=== PATIENT | female | born 1990 | race American Indian/Alaskan Native ===

== ENCOUNTER 2017-04-18 14:25 | Emergency (ER) | payer SELFPAY ==
[2017-04-18] MEDS ORDERED: BENADRYL ONE (15:24)
[2017-04-18] MEDS ORDERED: PEPCID IV ONE ×2 (15:24→15:26)
[2017-04-18] MEDS ORDERED: DECADRON ONE (15:24)
[2017-04-18] MEDS ORDERED: DECADRON IV ONE (15:26)
[2017-04-18] MEDS ORDERED: BENADRYL IV ONE (15:26)
--- NOTE | 2017-04-18 18:48 | Emergency Department Report ---
ED Allergic Reaction HPI - General Chief complaint: Allergic Reaction Stated complaint: HYPERTENSION/ALLERGIC REACTION Time Seen by Provider: 04/18/17 18:23 Source: patient Mode of arrival: Ambulatory Limitations: No Limitations - History of Present Illness MD Complaint: allergic reaction -: Gradual (this am at 0500) Exposure: food (sphaghetti) Symptoms: rash, itching, facial swelling (around the eyes), difficulty breathing , nausea, vomiting Severity: severe Treatment Prior to Arrival: none Previous Allergy History: none - Related Data Previous Rx's Medication Instructions Recorded Last Taken Type Methocarbamol [Robaxin] 750 mg PO BID #20 tab 09/15/14 Unknown Rx ALPRAZolam [Xanax TAB] 0.5 mg PO BID PRN #16 tab 02/11/15 Unknown Rx HYDROcodone/APAP 10-325 [[place] 1 each PO Q6HR PRN #16 tablet 03/30/15 Unknown Rx 10/325] Ibuprofen [Motrin 800 MG tab] 800 mg PO TID PRN #30 tablet 12/12/15 Unknown Rx Nitrofurantoin [place]/M-Cryst 100 mg PO Q12HR #14 capsule 12/12/15 Unknown Rx [Macrobid CAP] Promethazine [Phenergan TAB] 25 mg PO Q6HR PRN #20 tab 12/12/15 Unknown Rx traMADol [Ultram 50 MG tab] 50 mg PO Q6HR PRN #20 tablet 12/12/15 Unknown Rx Sulfamethoxazole/Trimethoprim 1 each PO BID #6 tablet 02/17/16 Unknown Rx [Bactrim DS TAB] Dexamethasone [Decadron] 20 mg PO ONCE #1 tablet 04/18/17 Unknown Rx Hydrochlorothiazide [HCTZ] 25 mg PO QDAY #30 tablet 04/18/17 Unknown Rx Ondansetron [Zofran TAB] 8 mg PO Q8HR PRN #9 tablet 04/18/17 Unknown Rx Allergies Allergy/AdvReac Type Severity Reaction Status Date / Time iodine Allergy Unknown Verified 04/18/17 15:10 ED Review of Systems ROS: Stated complaint: HYPERTENSION/ALLERGIC REACTION Other details as noted in HPI Constitutional: denies: chills, fever Eyes: denies: eye pain, eye discharge, vision change ENT: throat pain. denies: ear pain Respiratory: shortness of breath. denies: cough, wheezing Cardiovascular: denies: chest pain, palpitations Endocrine: no symptoms reported Gastrointestinal: nausea, vomiting ( 3 episodes). denies: abdominal pain, diarrhea Genitourinary: denies: urgency, dysuria, discharge Musculoskeletal: denies: back pain, joint swelling, arthralgia Skin: denies: rash, lesions Neurological: denies: headache, weakness, paresthesias Psychiatric: denies: anxiety, depression Hematological/Lymphatic: denies: easy bleeding, easy bruising ED Past Medical Hx - Past Medical History Previous Medical History?: Yes Hx Hypertension: Yes Hx Psychiatric Treatment: Yes (ANXIETY) Additional medical history: Heart murmur, Morbid Obesity - Surgical History Past Surgical History?: Yes Additional Surgical History: Umbilical HERNIA REPAIR - Social History Smoking Status: Never Smoker Substance Use Type: None - Medications Home Medications: Home Medications Medication Instructions Recorded Confirmed Last Taken Type Methocarbamol [Robaxin] 750 mg PO BID #20 tab 09/15/14 Unknown Rx ALPRAZolam [Xanax TAB] 0.5 mg PO BID PRN #16 tab 02/11/15 Unknown Rx HYDROcodone/APAP 10-325 [[place] 1 each PO Q6HR PRN #16 tablet 03/30/15 Unknown Rx 10/325] Ibuprofen [Motrin 800 MG tab] 800 mg PO TID PRN #30 tablet 12/12/15 Unknown Rx Nitrofurantoin [place]/M-Cryst 100 mg PO Q12HR #14 capsule 12/12/15 Unknown Rx [Macrobid CAP] Promethazine [Phenergan TAB] 25 mg PO Q6HR PRN #20 tab 12/12/15 Unknown Rx traMADol [Ultram 50 MG tab] 50 mg PO Q6HR PRN #20 tablet 12/12/15 Unknown Rx Sulfamethoxazole/Trimethoprim 1 each PO BID #6 tablet 02/17/16 Unknown Rx [Bactrim DS TAB] Dexamethasone [Decadron] 20 mg PO ONCE #1 tablet 04/18/17 Unknown Rx Hydrochlorothiazide [HCTZ] 25 mg PO QDAY #30 tablet 04/18/17 Unknown Rx Ondansetron [Zofran TAB] 8 mg PO Q8HR PRN #9 tablet 04/18/17 Unknown Rx ED Physical Exam - General Limitations: No Limitations General appearance: alert, in no apparent distress - Head Head exam: Present: atraumatic, normocephalic - Eye Eye exam: Present: normal appearance, EOMI, periorbital swelling, other ( urticaria around the eyes) - ENT ENT exam: Present: mucous membranes moist - Expanded ENT Exam Expanded Mouth exam: Present: normal external inspection, tongue normal. Absent: drooling, trismus, muffled voice Teeth exam: Present: normal inspection Throat exam: Positive: tonsillar erythema, tonsillomegaly - Neck Neck exam: Present: normal inspection, full ROM - Respiratory Respiratory exam: Present: normal lung sounds bilaterally. Absent: respiratory distress - Cardiovascular Cardiovascular Exam: Present: regular rate, normal rhythm, normal heart sounds. Absent: systolic murmur, diastolic murmur, rubs, gallop - GI/Abdominal GI/Abdominal exam: Present: soft, normal bowel sounds. Absent: distended, tenderness, guarding, rebound - Rectal Rectal exam: Present: deferred - Extremities Exam Extremities exam: Present: normal inspection, full ROM - Back Exam Back exam: Present: normal inspection, full ROM, other (tatoo in lumbar spine skin) - Neurological Exam Neurological exam: Present: alert, oriented X3, CN II-XII intact - Psychiatric Psychiatric exam: Present: normal affect, normal mood - Skin Skin exam: Present: warm, dry, intact, normal color, rash (around eyes, erythema , swelling), other (RIGHT SNCEST TATOO) ED Course Vital Signs 04/18/17 04/18/17 04/18/17 15:07 15:20 15:21 Temperature 98.3 F Pulse Rate 82 79 Respiratory 20 20 18 Rate Blood Pressure 116/89 O2 Sat by Pulse 99 98 Oximetry 04/18/17 04/18/17 04/18/17 15:30 15:46 16:00 Temperature Pulse Rate 88 83 83 Respiratory 15 36 H 19 Rate Blood Pressure 179/117 179/117 179/117 O2 Sat by Pulse 97 98 98 Oximetry 04/18/17 04/18/17 04/18/17 16:16 16:30 16:46 Temperature Pulse Rate 73 78 81 Respiratory 36 H 17 39 H Rate Blood Pressure 176/107 176/107 176/107 O2 Sat by Pulse 96 97 98 Oximetry 04/18/17 04/18/17 04/18/17 17:00 17:16 17:30 Temperature Pulse Rate 80 76 87 Respiratory 39 H 39 H 40 H Rate Blood Pressure 176/107 251/139 O2 Sat by Pulse 99 99 96 Oximetry 04/18/17 04/18/17 04/18/17 17:45 18:00 18:16 Temperature Pulse Rate 82 87 87 Respiratory 35 H 39 H 34 H Rate Blood Pressure 156/90 165/97 165/97 O2 Sat by Pulse 97 100 96 Oximetry 04/18/17 04/18/17 04/18/17 18:30 18:46 19:00 Temperature Pulse Rate 87 86 86 Respiratory 25 H 40 H 19 Rate Blood Pressure 165/97 148/90 158/103 O2 Sat by Pulse 97 Oximetry 04/18/17 19:16 Temperature Pulse Rate 87 Respiratory 14 Rate Blood Pressure 148/90 O2 Sat by Pulse Oximetry - Reevaluation(s) Reevaluation #1: 04/18/17 18:54 SHE IS NAUSEATED, WILL GIVE ZOFRAN. Critical care attestation.: If time is entered above; I have spent that time in minutes in the direct care of this critically ill patient, excluding procedure time. ED Disposition Clinical Impression: Strep pharyngitis with scarlet fever, Scarlet fever Hypertension Qualifiers: Hypertension type: unspecified Qualified Code(s): I10 - Essential (primary) hypertension Nausea & vomiting Qualifiers: Vomiting type: unspecified Vomiting Intractability: non-intractable Qualified Code(s): R11.2 - Nausea with vomiting, unspecified Disposition: DC-01 TO HOME OR SELFCARE Is pt being admited?: No Does the pt Need Aspirin: No Condition: Stable Instructions: Hypertension (ED), Strep Throat (ED), Scarlet Fever (ED), Acute Nausea and Vomiting (ED) Additional Instructions: you have strep throat, you are contagious. please do not kiss or share utensil with others in your family Prescriptions: Dexamethasone [Decadron] 20 mg PO ONCE #1 tablet Hydrochlorothiazide [HCTZ] 25 mg PO QDAY #30 tablet Ondansetron [Zofran TAB] 8 mg PO Q8HR PRN #9 tablet PRN Reason: Nausea And Vomiting Referrals: PRIMARY CARE,MD [Primary Care Provider] - 3-5 Days Forms: Work/School Release Form(ED) Time of Disposition: 20:12
[2017-04-18] MEDS ORDERED: ZOFRAN IV ONE (18:54)
[2017-04-18 19:25] VITALS: BP 148/90
[2017-04-18] MEDS ORDERED: BICILLIN L-A IM ONE (20:04)
== END 2017-04-18 20:20 | disposition home or self-care (01) ==
LOC: ED 14:25
DX: I10 Essential (primary) hypertension (principal); J02.0 Streptococcal pharyngitis; A38.9 Scarlet fever, uncomplicated; Z88.8 Allergy status to other drugs, medicaments and biological substances
CPT/HCPCS: 87430; 96372; 96374; 96375; 99282; J0561; J1100; J1200; J2405

== ENCOUNTER 2017-04-29 11:38 | Emergency (ER) | payer OTHER ==
[2017-04-29 12:34] LABS: Basophils % (Auto) 0.7 % (0.0-1.8); Eosinophils % (Auto) 1.3 % (0.0-4.3); Hematocrit 39.4 % (30.3-42.9); Hemoglobin 12.4 gm/dl (10.1-14.3); Mean Corpuscular HGB Conc 32 % (30-34); Mean Corpuscular Volume 82 fl (79-97); Platelet Count 341 K/mm3 (140-440); Red Blood Count 4.82 M/mm3 (3.65-5.03); Red Cell Distribution Width 16.2 % (13.2-15.2); White Blood Count 9.5 K/mm3 (4.5-11.0)
[2017-04-29 13:03] LABS: Mean Corpuscular Hemoglobin 26 pg (28-32)
[2017-04-29 14:52] LABS: Bacteria,Urine 1+ /HPF (Negative); Mucus,Urine 1+ /HPF
[2017-04-29 14:54] LABS: Bilirubin,Urine Negative (Negative); Blood,Urine Large (Negative); Ketones,Urine Negative (Negative); Nitrite,Urine Negative (Negative); Urobilinogen,Urine < 2.0 mg/dL (<2.0)
[2017-04-29 14:55] LABS: Leukocyte Esterase,Urine Large (Negative); RBC,Urine > 182.0 /HPF (0.0-6.0)
[2017-04-29 16:20] VITALS: BP 117/64
[2017-04-29] MEDS ORDERED: MACROBID PO ONE (16:49)
--- NOTE | 2017-04-29 16:51 | Emergency Department Report ---
HPI - General Chief Complaint: Vaginal Bleeding Time Seen by Provider: 04/29/17 16:24 - HPI HPI: This is a 26 year-old female presents to the emergency department with a few days of some vaginal bleeding and some abdominal cramping that started last night. The patient says that she took a home test last week and it was positive and therefore with the symptoms she is concerned that she had worse having a miscarriage. She says that the bleeding was light up until last night when she said it became heavier and she had some clots. Today it has started to improve but she still has the vaginal bleeding. She has not taken anything for her symptoms prior to presentation. With this she would be with one live child. She does not have an CHIEF SAFETY OFFICER. She has a past medical history of hypertension, anxiety. No recent travel or sick contacts at home. ED Past Medical Hx - Past Medical History Hx Hypertension: Yes Hx Psychiatric Treatment: Yes (ANXIETY) Additional medical history: Heart murmur, Morbid Obesity - Surgical History Additional Surgical History: Umbilical HERNIA REPAIR - Social History Smoking Status: Never Smoker Substance Use Type: None - Medications Home Medications: Home Medications Medication Instructions Recorded Confirmed Last Taken Type Methocarbamol [Robaxin] 750 mg PO BID #20 tab 09/15/14 Unknown Rx ALPRAZolam [Xanax TAB] 0.5 mg PO BID PRN #16 tab 02/11/15 Unknown Rx HYDROcodone/APAP 10-325 [[place] 1 each PO Q6HR PRN #16 tablet 03/30/15 Unknown Rx 10/325] Ibuprofen [Motrin 800 MG tab] 800 mg PO TID PRN #30 tablet 12/12/15 Unknown Rx Nitrofurantoin [place]/M-Cryst 100 mg PO Q12HR #14 capsule 12/12/15 Unknown Rx [Macrobid CAP] Promethazine [Phenergan TAB] 25 mg PO Q6HR PRN #20 tab 12/12/15 Unknown Rx traMADol [Ultram 50 MG tab] 50 mg PO Q6HR PRN #20 tablet 12/12/15 Unknown Rx Sulfamethoxazole/Trimethoprim 1 each PO BID #6 tablet 02/17/16 Unknown Rx [Bactrim DS TAB] Dexamethasone [Decadron] 20 mg PO ONCE #1 tablet 04/18/17 Unknown Rx Hydrochlorothiazide [HCTZ] 25 mg PO QDAY #30 tablet 04/18/17 Unknown Rx Ondansetron [Zofran TAB] 8 mg PO Q8HR PRN #9 tablet 04/18/17 Unknown Rx Nitrofurantoin Monohyd/M-Cryst 100 mg PO BID #14 capsule 04/29/17 Unknown Rx [Macrobid 100 mg Capsule] ED Review of Systems ROS: Stated complaint: VAG BLEEDING Other details as noted in HPI Comment: All other systems reviewed and negative Constitutional: denies: chills, fever Eyes: denies: eye pain, eye discharge, vision change ENT: denies: ear pain, throat pain Respiratory: denies: cough, shortness of breath, wheezing Cardiovascular: denies: chest pain, palpitations Gastrointestinal: abdominal pain. denies: nausea, vomiting Genitourinary: other (vaginal bleeding). denies: urgency, dysuria, discharge Musculoskeletal: denies: back pain, joint swelling, arthralgia Skin: denies: rash, lesions Neurological: denies: headache, weakness, paresthesias Physical Exam - Physical Exam Vital Signs: Vital Signs 04/29/17 04/29/17 04/29/17 11:44 13:32 13:41 Temperature 98.7 F 97.9 F Pulse Rate 76 68 Respiratory 17 18 Rate Blood Pressure 178/97 Blood Pressure 127/65 [Right] O2 Sat by Pulse 99 99 99 Oximetry 04/29/17 04/29/17 04/29/17 13:46 14:23 14:30 Temperature Pulse Rate 73 75 69 Respiratory 20 18 26 H Rate Blood Pressure 127/65 127/65 138/67 Blood Pressure [Right] O2 Sat by Pulse 100 97 Oximetry 04/29/17 04/29/17 04/29/17 14:46 15:00 15:16 Temperature Pulse Rate 67 60 67 Respiratory 21 15 27 H Rate Blood Pressure 138/67 123/25 123/25 Blood Pressure [Right] O2 Sat by Pulse 98 98 99 Oximetry 04/29/17 04/29/17 04/29/17 15:30 15:46 16:00 Temperature Pulse Rate 76 65 72 Respiratory 25 H 15 13 Rate Blood Pressure 123/25 146/93 117/64 Blood Pressure [Right] O2 Sat by Pulse 100 98 Oximetry 04/29/17 04/29/17 16:16 16:21 Temperature 98.0 F Pulse Rate 83 Respiratory 21 Rate Blood Pressure 117/64 Blood Pressure [Right] O2 Sat by Pulse 99 Oximetry Physical Exam: GENERAL: The patient is well-developed well-nourished. HENT: Normocephalic. Atraumatic. Patient has moist mucous membranes. EYES: Extraocular motions are intact. Pupils equal reactive to light bilaterally. NECK: Supple. Trachea is midline. CHEST/LUNGS: Clear to auscultation. There is no respiratory distress noted. HEART/CARDIOVASCULAR: Regular. There is no tachycardia. There is no murmur. ABDOMEN: Abdomen is soft, nontender. Patient has normal bowel sounds. There is no abdominal distention. Obese habitus. SKIN: Skin is warm and dry. NEURO: The patient is awake, alert, and oriented. The patient is cooperative. The patient has no focal neurologic deficits. The patient has normal speech. MUSCULOSKELETAL: There is no tenderness or deformity. There is no limitation range of motion. There is no evidence of acute injury. ED Course Vital Signs 04/29/17 04/29/17 04/29/17 11:44 13:32 13:41 Temperature 98.7 F 97.9 F Pulse Rate 76 68 Respiratory 17 18 Rate Blood Pressure 178/97 Blood Pressure 127/65 [Right] O2 Sat by Pulse 99 99 99 Oximetry 04/29/17 04/29/17 04/29/17 13:46 14:23 14:30 Temperature Pulse Rate 73 75 69 Respiratory 20 18 26 H Rate Blood Pressure 127/65 127/65 138/67 Blood Pressure [Right] O2 Sat by Pulse 100 97 Oximetry 04/29/17 04/29/17 04/29/17 14:46 15:00 15:16 Temperature Pulse Rate 67 60 67 Respiratory 21 15 27 H Rate Blood Pressure 138/67 123/25 123/25 Blood Pressure [Right] O2 Sat by Pulse 98 98 99 Oximetry 04/29/17 04/29/17 04/29/17 15:30 15:46 16:00 Temperature Pulse Rate 76 65 72 Respiratory 25 H 15 13 Rate Blood Pressure 123/25 146/93 117/64 Blood Pressure [Right] O2 Sat by Pulse 100 98 Oximetry 04/29/17 04/29/17 16:16 16:21 Temperature 98.0 F Pulse Rate 83 Respiratory 21 Rate Blood Pressure 117/64 Blood Pressure [Right] O2 Sat by Pulse 99 Oximetry ED Medical Decision Making - Lab Data Result diagrams: 04/29/17 12:05 - Medical Decision Making The patient presented with complaint of some abdominal cramping and some vaginal bleeding. It was heavy last night but has since slowed up. She has a stable hemoglobin level. Her beta hCG was 0 and are negative and she does not appear to be . Given her positive home test it was either a false positive or she had a chemical or she has since had a miscarriage. However given that the hormone level is 0, it did not occur in the last few days. Since the patient has a level of 0 and the bleeding has slowed up, I did not feel that a transvaginal ultrasound was necessary at this time. The rest of her labs have been unremarkable except for a urinary tract infection. She was given a prescription for Macrobid and she was given multiple referrals for CHIEF SAFETY OFFICER services. She will return to the ER with any worsening of her symptoms or any acute distress. Vital signs stable - Differential Diagnosis , threatened miscarriage, spontaneous miscarriage, fibroids Critical Care Time: No Critical care attestation.: If time is entered above; I have spent that time in minutes in the direct care of this critically ill patient, excluding procedure time. ED Disposition Clinical Impression: Vaginal bleeding, Spontaneous miscarriage UTI (urinary tract infection) Qualifiers: Urinary tract infection type: acute cystitis Hematuria presence: with hematuria Qualified Code(s): N30.01 - Acute cystitis with hematuria Disposition: TO HOME OR SELFCARE Is pt being admited?: No Condition: Stable Instructions: Spontaneous Miscarriage (ED), Dysfunctional Uterine Bleeding (ED) Additional Instructions: Please follow up with an CHIEF SAFETY OFFICER group. Return to the emergency Department with any worsening of your vaginal bleeding, worsening of your symptoms, or any acute distress. Prescriptions: Nitrofurantoin Monohyd/M-Cryst [Macrobid 100 mg Capsule] 100 mg PO BID #14 capsule Referrals: PRIMARY CARE [Primary Care Provider] - 3-5 Days [facility] [Provider Group] - 3-5 Days [facility] [Provider Group] - 3-5 Days [facility] [Provider Group] - 3-5 Days Forms: Work/School Release Form(ED) Time of Disposition: 16:51
== END 2017-04-29 17:00 | disposition home or self-care (01) ==
LOC: ED 11:38
DX: O03.9 Complete or unspecified spontaneous abortion without complication (principal); O23.40 Unspecified infection of urinary tract in pregnancy, unspecified trimester; I10 Essential (primary) hypertension; Z3A.00 Weeks of gestation of pregnancy not specified
CPT/HCPCS: 36415; 81001; 84702; 85025; 86850; 86900; 86901; 99283

== ENCOUNTER 2017-06-22 17:42 | Emergency (ER) | payer SELFPAY ==
[2017-06-22 18:36] LABS: Alanine Aminotransferase 7 units/L (7-56); Albumin 3.7 g/dL (3.9-5); BUN/Creatinine Ratio 13; Blood Urea Nitrogen 8 mg/dL (7-17); Calcium 8.6 mg/dL (8.4-10.2); Hemolysis Index 4
[2017-06-22 18:38] LABS: Basophils % (Auto) 0.2 % (0.0-1.8); Eosinophils # (Auto) 0.1 K/mm3 (0.0-0.4); Eosinophils % (Auto) 0.5 % (0.0-4.3); Hematocrit 40.3 % (30.3-42.9); Lymphocytes # (Auto) 1.5 K/mm3 (1.2-5.4); Lymphocytes % (Auto) 11.8 % (13.4-35.0); Mean Corpuscular HGB Conc 32 % (30-34); Mean Corpuscular Hemoglobin 26 pg (28-32); Mean Corpuscular Volume 80 fl (79-97); Monocytes # (Auto) 0.5 K/mm3 (0.0-0.8); Monocytes % (Auto) 3.7 % (0.0-7.3); Platelet Count 366 K/mm3 (140-440); Red Blood Count 5.05 M/mm3 (3.65-5.03)
--- NOTE | 2017-06-22 20:47 | Emergency Department Report ---
ED Abdominal Pain HPI - General Chief Complaint: Nausea/Vomiting/Diarrhea Stated Complaint: EMESIS Time Seen by Provider: 06/22/17 20:45 Source: patient Mode of arrival: Ambulatory Limitations: No Limitations - History of Present Illness Initial Comments: Patient here reports that she had positive home test 2 since 2017. She is complaining nausea vomiting with early . She says she is nauseous today but vomited yesterday. Stated I think I have a stomach virus. She also reports flulike symptoms for a week. Denies any vaginal discharge or bleeding. Reports abdominal cramping left lower quadrant that's been on-and-off since today. Cramping is 8 out of 10 when present. She has been twice with one living child. Denies any coughing, chest pain or difficulty breathing. Denies any diarrhea. Denies any sore throat. No over- the-counter medication taken. Patient says she has not been to the [facility] she wanted to verify her first. Last menstrual period was 04/30/2017. Patient does have a history of high blood pressure and she says it's controlled on medication. Her blood pressure in triage is 149/99. She has a history of anxiety. She denies any swelling in her legs. MD Complaint: abdominal pain (and reported ) -: This morning Location: LLQ Radiation: none Severity: severe Severity scale (0 -10): 8 Quality: cramping Consistency: intermittent Improves With: nothing Worsens With: nothing Context: other (reports ) Associated Symptoms: nausea, vomiting, chills, other (nasal congestion and runny nose). denies: diarrhea, fever, constipation, hematochezia, melena, hematuria, anorexia, syncope Treatments Prior to Arrival: other (none) - Related Data LMP Date: 04/30/17 Previous Rx's Medication Instructions Recorded Last Taken Type Methocarbamol [Robaxin] 750 mg PO BID #20 tab 09/15/14 Unknown Rx ALPRAZolam [Xanax TAB] 0.5 mg PO BID PRN #16 tab 02/11/15 Unknown Rx HYDROcodone/APAP 10-325 [Brainard 1 each PO Q6HR PRN #16 tablet 03/30/15 Unknown Rx 10/325] Ibuprofen [Motrin 800 MG tab] 800 mg PO TID PRN #30 tablet 12/12/15 Unknown Rx Nitrofurantoin [place]/M-Cryst 100 mg PO Q12HR #14 capsule 12/12/15 Unknown Rx [Macrobid CAP] Promethazine [Phenergan TAB] 25 mg PO Q6HR PRN #20 tab 12/12/15 Unknown Rx traMADol [Ultram 50 MG tab] 50 mg PO Q6HR PRN #20 tablet 12/12/15 Unknown Rx Sulfamethoxazole/Trimethoprim 1 each PO BID #6 tablet 02/17/16 Unknown Rx [Bactrim DS TAB] Dexamethasone [Decadron] 20 mg PO ONCE #1 tablet 04/18/17 Unknown Rx Hydrochlorothiazide [HCTZ] 25 mg PO QDAY #30 tablet 04/18/17 Unknown Rx Ondansetron [Zofran TAB] 8 mg PO Q8HR PRN #9 tablet 04/18/17 Unknown Rx Nitrofurantoin Monohyd/M-Cryst 100 mg PO BID #14 capsule 04/29/17 Unknown Rx [Macrobid 100 mg Capsule] Nitrofurantoin Monohyd/M-Cryst 100 mg PO Q12H 7 Days #14 capsule 06/22/17 Unknown Rx [Macrobid 100 mg Capsule] Vit No.130/Iron/Folic 1 each PO QAM 30 Days #30 tablet 06/22/17 Unknown Rx [ Tablet] Allergies Allergy/AdvReac Type Severity Reaction Status Date / Time iodine Allergy Unknown Verified 04/18/17 15:10 ED Review of Systems ROS: Stated complaint: EMESIS Other details as noted in HPI Comment: All other systems reviewed and negative Constitutional: chills. denies: fever Eyes: denies: eye pain, eye discharge ENT: congestion. denies: ear pain, throat pain Respiratory: no symptoms reported Cardiovascular: denies: chest pain, palpitations, dyspnea on exertion, edema, syncope, paroxysmal nocturnal dyspnea Gastrointestinal: abdominal pain, nausea, vomiting. denies: diarrhea, constipation, hematemesis, melena, hematochezia Genitourinary: abnormal menses. denies: urgency, dysuria, frequency, hematuria , discharge Musculoskeletal: denies: back pain, joint swelling, arthralgia, myalgia Skin: denies: rash Neurological: denies: headache, weakness, numbness, paresthesias, confusion, abnormal gait, vertigo ED Past Medical Hx - Past Medical History Previous Medical History?: Yes Hx Hypertension: Yes Hx Psychiatric Treatment: Yes (ANXIETY) Additional medical history: Heart murmur, Morbid Obesity, vaginal delivery 2008 - Surgical History Past Surgical History?: Yes Additional Surgical History: Umbilical HERNIA REPAIR - Family History Family history: hypertension - Social History Smoking Status: Never Smoker Substance Use Type: Prescribed - Medications Home Medications: Home Medications Medication Instructions Recorded Confirmed Last Taken Type Methocarbamol [Robaxin] 750 mg PO BID #20 tab 09/15/14 Unknown Rx ALPRAZolam [Xanax TAB] 0.5 mg PO BID PRN #16 tab 02/11/15 Unknown Rx HYDROcodone/APAP 10-325 [Brainard 1 each PO Q6HR PRN #16 tablet 03/30/15 Unknown Rx 10/325] Ibuprofen [Motrin 800 MG tab] 800 mg PO TID PRN #30 tablet 12/12/15 Unknown Rx Nitrofurantoin [place]/M-Cryst 100 mg PO Q12HR #14 capsule 12/12/15 Unknown Rx [Macrobid CAP] Promethazine [Phenergan TAB] 25 mg PO Q6HR PRN #20 tab 12/12/15 Unknown Rx traMADol [Ultram 50 MG tab] 50 mg PO Q6HR PRN #20 tablet 12/12/15 Unknown Rx Sulfamethoxazole/Trimethoprim 1 each PO BID #6 tablet 02/17/16 Unknown Rx [Bactrim DS TAB] Dexamethasone [Decadron] 20 mg PO ONCE #1 tablet 04/18/17 Unknown Rx Hydrochlorothiazide [HCTZ] 25 mg PO QDAY #30 tablet 04/18/17 Unknown Rx Ondansetron [Zofran TAB] 8 mg PO Q8HR PRN #9 tablet 04/18/17 Unknown Rx Nitrofurantoin Monohyd/M-Cryst 100 mg PO BID #14 capsule 04/29/17 Unknown Rx [Macrobid 100 mg Capsule] Nitrofurantoin Monohyd/M-Cryst 100 mg PO Q12H 7 Days #14 capsule 06/22/17 Unknown Rx [Macrobid 100 mg Capsule] Vit No.130/Iron/Folic 1 each PO QAM 30 Days #30 tablet 06/22/17 Unknown Rx [ Tablet] ED Physical Exam - General Limitations: No Limitations General appearance: alert, in no apparent distress - Head Head exam: Present: atraumatic, normocephalic, normal inspection - Eye Eye exam: Present: normal appearance, PERRL, EOMI. Absent: nystagmus, periorbital swelling, periorbital tenderness Pupils: Present: normal accommodation - ENT ENT exam: Present: normal exam, normal orophraynx, mucous membranes moist, TM's normal bilaterally, normal external ear exam - Neck Neck exam: Present: normal inspection, full ROM, other. Absent: tenderness, meningismus, lymphadenopathy, thyromegaly - Respiratory Respiratory exam: Present: normal lung sounds bilaterally. Absent: respiratory distress, chest wall tenderness, accessory muscle use - Cardiovascular Cardiovascular Exam: Present: regular rate, normal rhythm, normal heart sounds. Absent: systolic murmur, diastolic murmur - GI/Abdominal GI/Abdominal exam: Present: soft, normal bowel sounds. Absent: distended, tenderness, guarding, rebound, rigid, organomegaly, mass, bruit, pulsatile mass , hernia - External exam: Present: normal external exam. Absent: erythema, swelling, lesions, lacerations, ecchymosis, other Speculum exam: Present: normal speculum exam. Absent: erythema, vaginal discharge, cervical discharge, vaginal bleeding, foreign body, tissue, laceration Bi-manual exam: Present: normal bi-manual exam. Absent: cervical motion tendernes, adnexal tenderness, adnexal mass, uterine enlargement, uterine tenderness - Expanded Exam Expanded Female exam: Absent: vaginal laceration, tissue present in vagina, herpetic lesions, vulvar erythema, vulvar tenderness, foreign body External exam: Present: normal Amniotic fluid: Present: none Speculum exam: Present: cervical OS closed - Extremities Exam Extremities exam: Present: normal inspection, full ROM, normal capillary refill , other (no clubbing, cyanosis or edema. Positive pulses all extremities and no neurovascular compromise). Absent: tenderness, pedal edema, joint swelling, calf tenderness - Back Exam Back exam: Present: normal inspection, full ROM, other (ablated without any difficulties). Absent: tenderness, CVA tenderness (R), CVA tenderness (L), muscle spasm, paraspinal tenderness, vertebral tenderness, rash noted - Neurological Exam Neurological exam: Present: alert, oriented X3, normal gait, reflexes normal. Absent: motor sensory deficit - Psychiatric Psychiatric exam: Present: normal affect, normal mood - Skin Skin exam: Present: warm, dry, intact, normal color. Absent: rash ED Course Vital Signs 06/22/17 06/22/17 17:45 22:18 Temperature 97.7 F Pulse Rate 85 Respiratory 20 Rate Blood Pressure 149/99 Blood Pressure 132/84 [Left] O2 Sat by Pulse 97 Oximetry Vital Signs 06/22/17 06/22/17 17:45 22:18 Temperature 97.7 F Pulse Rate 85 Respiratory 20 Rate Blood Pressure 149/99 Blood Pressure 132/84 [Left] O2 Sat by Pulse 97 Oximetry - Reevaluation(s) Reevaluation #1: 06/22/17 22:08 Pelvic exam done and cervix appears normal and closed without any bleeding in or discharge noted. No adnexal tenderness or CMT. Patient received Zofran 4 mg ODT and she was able to tolerate 4 cups of juice without any difficulties. Her vital signs better to include her blood pressure which was 144/96 when she arrived. She has a history of high blood pressure and is . Patient takes HCTZ but told her that she needs to monitor her blood pressure daily and call referrals made to [facility] doctor international trade analyst or [facility] to schedule an appointment for this week to discuss care and also shortness of blood pressure medication during . Reevaluation #2: 06/22/17 23:[address] Collado for to return call to let them know that patient ultrasound shows probably blighted ovum from and that patient will need to follow-up for ultrasound. ED Medical Decision Making - Lab Data Result diagrams: 06/22/17 17:57 06/22/17 17:57 Lab Results 06/22/17 06/22/17 06/22/17 Range/Units 17:57 17:57 17:57 WBC 12.6 H (4.5-11.0) K/mm3 RBC 5.05 H (3.65-5.03) M/mm3 Hgb 13.0 (10.1-14.3) gm/dl Hct 40.3 (30.3-42.9) % MCV 80 (79-97) fl MCH 26 L (28-32) pg MCHC 32 (30-34) % RDW 17.0 H (13.2-15.2) % Plt Count 366 (140-440) K/mm3 Lymph % (Auto) 11.8 L (13.4-35.0) % [place] % (Auto) 3.7 (0.0-7.3) % Eos % (Auto) 0.5 (0.0-4.3) % Baso % (Auto) 0.2 (0.0-1.8) % Lymph # 1.5 (1.2-5.4) K/mm3 [place] # 0.5 (0.0-0.8) K/mm3 Eos # 0.1 (0.0-0.4) K/mm3 Baso # 0.0 (0.0-0.1) K/mm3 Seg Neutrophils % 83.8 H (40.0-70.0) % Seg Neutrophils # 10.5 H (1.8-7.7) K/mm3 Sodium 138 (137-145) mmol/L Potassium 4.1 (3.6-5.0) mmol/L Chloride 98.7 (98-107) mmol/L Carbon Dioxide 27 (22-30) mmol/L Anion Gap 16 mmol/L BUN 8 (7-17) mg/dL Creatinine 0.6 L (0.7-1.2) mg/dL Estimated GFR > 60 ml/min BUN/Creatinine Ratio 13 % Glucose 99 (65-100) mg/dL Calcium 8.6 (8.4-10.2) mg/dL Total Bilirubin 0.30 (0.1-1.2) mg/dL AST 11 (5-40) units/L ALT 7 (7-56) units/L Alkaline Phosphatase 65 (35-129) units/L Total Protein 6.7 (6.3-8.2) g/dL Albumin 3.7 L (3.9-5) g/dL Albumin/Globulin Ratio 1.2 % HCG, Quant 9770 H (0-4) mIU/mL Urine Color (Yellow) Urine Turbidity (Clear) Urine pH (5.0-7.0) Ur Specific [place] (1.003-1.030) Urine Protein (Negative) mg/dL Urine Glucose (UA) (Negative) mg/dL Urine Ketones (Negative) mg/dL Urine Blood (Negative) Urine Nitrite (Negative) Urine Bilirubin (Negative) Urine Urobilinogen (<2.0) mg/dL Ur Leukocyte Esterase (Negative) Urine WBC (Auto) (0.0-6.0) /HPF Urine RBC (Auto) (0.0-6.0) /HPF U Epithel Cells (Auto) (0-13.0) /HPF Urine Mucus /HPF 06/22/17 Range/Units 20:35 WBC (4.5-11.0) K/mm3 RBC (3.65-5.03) M/mm3 Hgb (10.1-14.3) gm/dl Hct (30.3-42.9) % MCV (79-97) fl MCH (28-32) pg MCHC (30-34) % RDW (13.2-15.2) % Plt Count (140-440) K/mm3 Lymph % (Auto) (13.4-35.0) % [place] % (Auto) (0.0-7.3) % Eos % (Auto) (0.0-4.3) % Baso % (Auto) (0.0-1.8) % Lymph # (1.2-5.4) K/mm3 [place] # (0.0-0.8) K/mm3 Eos # (0.0-0.4) K/mm3 Baso # (0.0-0.1) K/mm3 Seg Neutrophils % (40.0-70.0) % Seg Neutrophils # (1.8-7.7) K/mm3 Sodium (137-145) mmol/L Potassium (3.6-5.0) mmol/L Chloride (98-107) mmol/L Carbon Dioxide (22-30) mmol/L Anion Gap mmol/L BUN (7-17) mg/dL Creatinine (0.7-1.2) mg/dL Estimated GFR ml/min BUN/Creatinine Ratio % Glucose (65-100) mg/dL Calcium (8.4-10.2) mg/dL Total Bilirubin (0.1-1.2) mg/dL AST (5-40) units/L ALT (7-56) units/L Alkaline Phosphatase (35-129) units/L Total Protein (6.3-8.2) g/dL Albumin (3.9-5) g/dL Albumin/Globulin Ratio % HCG, Quant (0-4) mIU/mL Urine Color Yellow (Yellow) Urine Turbidity Clear (Clear) Urine pH 5.0 (5.0-7.0) Ur Specific [place] 1.030 (1.003-1.030) Urine Protein <15 mg/dl (Negative) mg/dL Urine Glucose (UA) Neg (Negative) mg/dL Urine Ketones 20 (Negative) mg/dL Urine Blood Neg (Negative) Urine Nitrite Neg (Negative) Urine Bilirubin Neg (Negative) Urine Urobilinogen < 2.0 (<2.0) mg/dL Ur Leukocyte Esterase Lg (Negative) Urine WBC (Auto) 4.0 (0.0-6.0) /HPF Urine RBC (Auto) 2.0 (0.0-6.0) /HPF U Epithel Cells (Auto) 12.0 (0-13.0) /HPF Urine Mucus Few /HPF Urine culture pending - Radiology Data Radiology results: report reviewed Ultrasound transvaginal and transabdominal reveals single intrauterine with an approximate age of 6 weeks and 1 days. No evidence of pole or yolk sac is identified. This is abnormal for this estimated gestational age however short-term follow-up ultrasound in 1 week is recommended to exclude a blighted ovum. He has no evidence for solid adnexal masses seen there is no free fluids noted with air varies appear normal in size and echogenicity with normal blood flow bilaterally. Expected date of delivery is 02/14/2018 - Medical Decision Making ED course: Patient here reports that she was requesting present to test because she had 2 positive tests at home and she is having cramping in her abdomen without any vaginal discharge or bleeding in. She is also complaining of nausea and vomiting earlier today. Pelvic exam is normal. Ultrasound transvaginal and pelvic shows patient with IUP at 6 weeks 1 day. No evidence of pole or yolk sac is identified. Short-term follow-up ultrasound in 1 week is recommended to exclude blighted ovum due to absence of pole and yolk sac. Patient does not have [facility] and she does not have access due to lack of insurance. I already discussed with patient that I would give 2 referrals to on-call doctor who is and also this [facility] who has [facility] service. Patient has chronic hypertension and I told her that she needs to call the 2 referrals tomorrow to see which when she can get in first 2 managed hypertension in . Her blood pressure stable at present. I collaborated with Dr. Torrez regarding patient ultrasound results and she wants Dr. Collado to be called just to let them now that patient's has possible blighted ovum and will need to be seen for follow-up ultrasound and quantitative hCG in one week per radiologist.. I spoke with patient regarding in ultrasound results and told her that she'll need to return in 2 days to have blood hormone level taken and also she will need to have access to [facility] offices for repeat ultrasound and if she cannot get in [facility] in one week to return to the emergency room for follow-up ultrasound. I discussed with her if the ultrasound result and told her that also intrauterine was detected at 6 weeks and 1 day there were other components to the ultrasound that were not seen and this is suggested that probably this is a molar . I discussed with her what molar is and she voiced understanding. I also discussed with her that there are no heart rate detected. I discussed in detail with her what molar is. I also told the room waiting for the on-call [facility] to call me back. I discussed her diagnosis, treatment plan and that she needs to start on vitamin. I also discussed with her that she has a bladder infection and will need to start and Macrobid. Patient leukocyte Estrace is showing a large amount with all other values showing normal therefore urine culture sent out she does have slightly elevated white count with shifted to the left. Patient discharged home in stable condition with prescription for Macrobid and vitamin. She opts to leave and return in 2 days and she says she'll call both referrals tomorrow morning in to schedule an appointment for outpatient follow-up. She is also aware that she needs to return in 2 days for follow-up serum hCG level. Patient is stable she says she felt better and did not want to wait. Discharged from ED in stable condition. Critical care attestation.: If time is entered above; I have spent that time in minutes in the direct care of this critically ill patient, excluding procedure time. ED Disposition Clinical Impression: Abdominal pain during in first trimester, Nausea and vomiting in prior to 22 weeks gestation, Elevated serum hCG, Urinary tract infection during intrauterine Disposition: TO HOME OR SELFCARE Is pt being admited?: No Does the pt Need Aspirin: No Condition: Stable Instructions: Urinary Tract Infection in Women (ED), Acute Nausea and Vomiting (ED), Abdominal Pain in (ED) Additional Instructions: Please return to the emergency room and 2 days to get repeat hormone level. You will need to have a repeat ultrasound in 1 week by [facility] and if he cannot get in with [facility] at some outside Medical Center or with Dr. Collado please return to the emergency room If he developed vaginal bleeding and/or discharge with cramp in return to the emergency room RAJENDRA Please monitor the blood pressure daily and keep written log to take 2 year first [facility] visit Start taking vitamin Prescriptions: Nitrofurantoin Monohyd/M-Cryst [Macrobid 100 mg Capsule] 100 mg PO Q12H 7 Days # 14 capsule Vit No.130/Iron/Folic [ Tablet] 1 each PO QAM 30 Days #30 tablet Referrals: [facility] [Outside] - 06/23/17 [place] COLLADO MD [Staff Physician] - 06/23/17 return to, emergency room in 2 days [Other] - 06/24/17 (For repeat hormone tests) Forms: Work/School Release Form(ED)
[2017-06-22 21:07] LABS: Bilirubin,Urine NEG (Negative); Blood,Urine NEG (Negative); Color,Urine Yellow (Yellow); Mucus,Urine FEW /HPF; Nitrite,Urine NEG (Negative); Protein,Urine <15 mg/dL mg/dL (Negative); Urobilinogen,Urine < 2.0 mg/dL (<2.0)
[2017-06-22] MEDS ORDERED: ZOFRAN ODT PO ONE (21:39)
--- NOTE | 2017-06-22 22:15 | Ultrasound Report ---
FINAL REPORT EXAM: US OB < = 14 WEEKS FETUS HISTORY: , no abdominal pain, n/v . Serum beta HCG quantitation 9770. LMP 04/26/2017 with estimated age 8 weeks 1 day and EDC 01/31/2018 TECHNIQUE: Ultrasound of the pelvis using transabdominal and transvaginal imaging PRIORS: None. FINDINGS: Uterus: Uterus is enlarged in size and normal and homogeneous in echogenicity without focal fibroid formation. The uterus measures 11.1 x 6.2 x 6.5 cm in size. There is a single early intrauterine gestation noted in the fundus of the uterus. Intrauterine gestation: There is a single intrauterine gestation identified but there is no evidence for a pole and yolk sac. The average gestational sac diameter of 13 mm corresponds to estimated age 6 weeks 1 days with EDC 02/14/2018. Ovaries: Both ovaries appear normal in size and echogenicity with normal blood flow bilaterally. The right ovary measures 3.5 x 2.0 x 1.9 cm and the left ovary measures 2.8 x 1.5 x 2.1 cm in size. There is an anechoic simple cystic focus in the right ovary measuring 1.9 cm. Other: There is no evidence for solid adnexal mass is seen. There is no free fluid in the cul-de-sac. IMPRESSION: Single intrauterine with an approximate age of 6 weeks 1 days. No evidence for pole or yolk sac is identified. This is abnormal for this estimated gestational age, however, short-term follow-up ultrasound in 1 week is recommended to exclude a blighted ovum.
[2017-06-22 22:19] VITALS: BP 132/84
== END 2017-06-22 23:26 | disposition home or self-care (01) ==
LOC: ED 17:42
DX: O23.41 Unspecified infection of urinary tract in pregnancy, first trimester (principal); I10 Essential (primary) hypertension; Z3A.01 Less than 8 weeks gestation of pregnancy; Z88.8 Allergy status to other drugs, medicaments and biological substances
CPT/HCPCS: 36415; 76801; 76817; 80053; 81001; 84702; 85025; 87086; 99284; Q0162

== ENCOUNTER 2017-07-19 12:36 | Outpatient (CLI) | payer MEDICAID ==
--- NOTE | 2017-07-20 07:47 | Ultrasound Report ---
ULTRASOUND OB LESS THAN 14 WEEKS FETUS ULTRASOUND OB TRANSVAGINAL HISTORY: Missed . COMPARISON: 06/22/17. TECHNIQUE: Transabdominal and transvaginal ultrasound with color doppler interrogation. FINDINGS: Uterus: The uterus is anteverted. The uterus measures 14.3 x 6.8 x 7.6 cm. There appears to be a rather large submucosal fibroid in the posterior wall measuring 5.4 x 4.5 x 4.7 cm. The cervix is unremarkable. Endometrium: A gestational sac with average diameter measuring 33.1 mm is identified correlating with a 8 week, 3 day . No pole, yolk sac or cardiac activity could be demonstrated. Right ovary: 2.5 x 2.2 x 2.6 cm. No focal abnormality. Left ovary: 2.8 x 2.0 x 2.3 cm. No focal abnormality. No pelvic fluid or mass is identified. Normal color doppler interrogation. IMPRESSION: Nonviable . An empty gestational sac is identified and no evidence for pole or cardiac activity.
== END 2017-07-19 12:37 | disposition home or self-care (01) ==
LOC: US 12:36
PROVIDERS: ATTEND Obstetrics & Gynecology
DX: O20.0 Threatened abortion (principal); Z3A.08 8 weeks gestation of pregnancy
CPT/HCPCS: 76801; 76817

== ENCOUNTER 2017-07-21 06:14 | Day surgery (SDC) | payer MEDICAID ==
--- NOTE | 2017-07-20 17:05 | History and Physical Report ---
History of Present Illness Date of examination: 07/19/17 Chief complaint: Blighted Ovum History of present illness: Pt is a 26 year old female LMP 04/25/17 at 12w2d by LMP with 8 wk sized blighted ovum on [facility] ultrasound on 07/20/17. She desires surgical management. Past History Past Medical History: hypertension Past Surgical History: other (hernia repair ) [employer] History: fibroids Family/Genetic History: diabetes, hypertension Social history: no significant social history - Obstetrical History Expected Date of Delivery: 01/30/18 Actual Gestation: 12 Week(s) 2 Day(s) : 3 Para: 1 Hx # Term Pregnancies: 1 Number of Pregnancies: 0 Spontaneous Abortions: 1 Induced : 1 Medications and Allergies Allergies Allergy/AdvReac Type Severity Reaction Status Date / Time iodine Allergy Unknown Verified 07/20/17 12:32 shrimp Allergy Swelling Unverified 07/20/17 12:32 Home Medications Medication Instructions Recorded Confirmed Last Taken Type Vit No.130/Iron/Folic 1 each PO QAM 30 Days #30 tablet 06/22/17 Unknown Rx [ Tablet] Active Meds: Active Medications Lactated Ringer's (Lactated Ringers) 1,000 mls @ 100 mls/hr IV DIRECT LITA Doxycycline Hyclate 100 mg/ (Sodium Chloride) 250 mls @ 250 mls/hr IV ONCE ONE ; Protocol Stop: 07/21/17 07:59 Review of Systems All systems: negative - Physical Exam Breasts: Positive: deferred Cardiovascular: Regular rate Lungs: Positive: Clear to auscultation Abdomen: Positive: soft (obese) Uterus: Positive: enlarged Extremities: Positive: normal Results All other labs normal. Assessment and Plan A: Blighted ovum at 8 wks HTN P: Proceed with suction dilation and curettage and other indicated procedures.
[~2017-07-21 06:14] MED LIST: LACTATED RINGERS 1,000 ML IV SCH
[2017-07-21] MEDS ORDERED: NACL BACTERIOSTATIC INFILTRATI ONE (06:40)
--- NOTE | 2017-07-21 06:56 | Anesthesia Consultation ---
Anesthesia Consult and Med Hx Date of service: 07/21/17 - Airway Anesthetic Teeth Evaluation: Good ROM Head & Neck: Adequate Mental/Hyoid Distance: Adequate Mallampati Class: Class I Intubation Access Assessment: Good - Pulmonary Exam CTA: Yes - Cardiac Exam Cardiac Exam: RRR - Pre-Operative Health Status ASA Pre-Surgery Classification: ASA2 Proposed Anesthetic Plan: General - Cardiovascular System Hx Hypertension: Yes (Stopped taking meds after being seen in ED 06/2017) Hx Heart Murmur: Yes - Central Nervous System Hx Psychiatric Problems: Yes - Other Systems Hx Cancer: No
[2017-07-21] MEDS ORDERED: TORADOL IV PRN (06:57)
--- NOTE | 2017-07-21 06:57 | Anesthesia Day of Surgery ---
Anesthesia Day of Surgery - Day of Surgery Patient Examined: Yes Patient H&P Reviewed: Yes Patient is NPO: Yes
[2017-07-21] MEDS ORDERED: METHERGINE IM ONE (06:59)
[2017-07-21] MEDS ORDERED: SILVER NITRATE TP ONE (06:59)
[2017-07-21] MEDS ORDERED: DOXYCYCLINE HYCLATE 100 MG in NACL 0.9% 250ML 250 ML IV ONE (07:00)
[2017-07-21] MEDS ORDERED: VERSED IV NR (07:00)
[2017-07-21] MEDS ORDERED: NACL 0.9% 1000 ML 1,000 ML IV SCH (07:00)
[2017-07-21 07:24] LABS: Mean Corpuscular HGB Conc 32 % (30-34); Mean Corpuscular Hemoglobin 26 pg (28-32); Mean Corpuscular Volume 80 fl (79-97); Platelet Count 336 K/mm3 (140-440); Red Cell Distribution Width 17.5 % (13.2-15.2)
[2017-07-21] MEDS ORDERED: DIPRIVAN 10 MG/ML IV ONE ×3 (07:26→07:27)
[2017-07-21] MEDS ORDERED: SUBLIMAZE ONE (07:27)
[2017-07-21] MEDS ORDERED: CYTOTEC VG NR (08:00)
--- NOTE | 2017-07-21 08:26 | Operative Report ---
Operative Report Operative Report: Procedure: July 21, 2017 Preoperative diagnosis: 1) Blighted ovum 2) Morbid Obesity BMI 52 3) Fibroid Uterus Postoperative diagnosis; Same Procedure: Suction dilation and curettage Surgeon: Allison Barragan MD Findings: Anteverted uterus with posterior fibroid Anesthesia: GETA EBL: 100 mL IVF: 300 mL Urine output: 75 mL, clear but concentrated prior to the procedure Specimen: Products of Conception to pathology Medications: Misoprostol 800 mcg per rectum Drains: None Complications: None. Counts correct x 2 Disposition: Stable to pathology Indication for Procedure: Pt is a 26 year old female LMP 04/25/17 at 12w2d by LMP with 8 wk sized blighted ovum on [facility] ultrasound on 07/20/17. She desires surgical management. Operation in Detail: After the risks, benefits, alternatives, and complications of the procedure were spine to the patient, she gives informed consent for the procedure. She was subsequently taken to the operating room with her IV noted to be running well and placement dorsal supine position. SCDs were noted to be in place and functioning. General endotracheal anesthesia was induced without difficulty. The patient was placed in dorsal lithotomy position. An exam under anesthesia was performed. She was then prepped and draped in normal sterile fashion. A timeout was performed. A rubber catheter was used to drain the bladder of 75 mL of clear urine. An open sided bivalve speculum was placed into the vagina for adequate visualization of the cervix. A single-tooth tenaculum was placed on the anterior lip of the cervix. The uterus was gently sounded to 10 cm. The cervix was sequentially dilated with Wolf dilators to a number 25. A #8 rigid cannula was connected to suction and used to evacuate the uterine cavity. The products of conception were collected and sent to pathology. Sharp curettage of the uterine cavity revealed 4 quadrants were gritty. At this time the procedure was ended attachments were removed from the uterine cavity atraumatically. The single-tooth tenaculum was removed from the cervix atraumatically. Hemostasis was noted. 800 g of misoprostol were then placed in the patient's rectum to ensure adequate uterine contraction. The procedure was ended. The patient tolerated the procedure well and was extubated without difficulty and taken to the PACU in stable condition. All counts were correct 2.
[2017-07-21] MEDS ORDERED: QUELICIN ONE (08:30)
[2017-07-21] MEDS ORDERED: ZOFRAN ONE (08:30)
[2017-07-21] MEDS ORDERED: ZEMURON IV ONE (08:30)
--- NOTE | 2017-07-21 08:30 | Short Stay Summary ---
Short Stay Documentation Date of service: 07/21/17 - History Social history: no significant social history - Allergies and Medications Current Medications: Allergies iodine Allergy (Verified 07/20/17 12:32) Unknown shrimp Allergy (Verified 07/21/17 06:35) Swelling Home Medications Medication Instructions Recorded Confirmed Last Taken Type Vit No.130/Iron/Folic 1 each PO QAM 30 Days #30 tablet 06/22/1707/19/17 Rx [ Tablet] Active Medications Lactated Ringer's (Lactated Ringers) 1,000 mls @ 100 mls/hr IV DIRECT LITA Sodium Chloride (Nacl 0.9% 1000 Ml) 1,000 mls @ 42 mls/hr IV DIRECT LITA Last Admin: 07/21/17 07:21 Dose: 42 mls/hr Ketorolac Tromethamine (Toradol) 30 mg IV ONCE PRN PRN Reason: Pain, Moderate (4-6) Midazolam HCl (Versed) 2 mg IV PREOP NR Stop: 07/21/17 23:59 Last Admin: 07/21/17 07:29 Dose: 2 mg Misoprostol (Cytotec) 800 mcg VG ONCE NR Stop: 07/21/17 10:00 Morphine Sulfate (Morphine) 4 mg IV Q10MIN PRN PRN Reason: Pain , Severe (7-10) - Physical exam Breasts: deferred - Brief post op/procedure progress note Date of procedure: 07/21/17 Pre-op diagnosis: Blighted Ovum, Morbid Obesity, Uterine Fibroid Post-op diagnosis: same Procedure: Suction Dilation and Curettage Anesthesia: GETA Findings: Anteverted uterus with posterior fibroid Surgeon: MIRIAM BARRAGAN Estimated blood loss: 50-100ml (100 mL) Pathology: list (products of conception) Specimen disposition: to lab Condition: stable - Hospital course Hospital course: The patient underwent suction dilation and curettage she tolerated well. She was observed in the PACU and she met discharge criteria. She'll follow-up in the office in [address] Barragan. - Disposition Condition at discharge: Stable Disposition: - TO HOME OR SELFCARE - Discharge Diagnoses (1) Blighted ovum Status: Acute (2) Morbid obesity Status: Acute (3) Fibroid uterus Status: Acute Qualifiers: Uterine leiomyoma location: unspecified location Qualified Code(s): D25.9 - Leiomyoma of uterus, unspecified (4) Hypertension Status: Acute Qualifiers: Hypertension type: unspecified Qualified Code(s): I10 - Essential (primary ) hypertension Short Stay Discharge Plan Activity: other (Nothing in vagina or tub baths x 4 weeks ) Weight Bearing Status: Full Weight Bearing Diet: regular Follow up with: MIRIAM BARRAGAN MD [Staff Physician] - 08/03/17 (please call for postoperative appt ) Prescriptions: Fluconazole [Diflucan] 150 mg PO ONCE #1 tablet Ibuprofen [Motrin] 800 mg PO Q8HR PRN #30 tablet PRN Reason: Pain oxyCODONE /ACETAMINOPHEN [Percocet 5/325] 1 tab PO Q6HR PRN #20 tablet PRN Reason: Pain
--- NOTE | 2017-07-21 08:51 | Post Anesthesia Evaluation ---
- Post Anesthesia Evaluation Patient Participated: Yes Airway Patent: Yes Stable Respiratory Function: Yes Nausea/Vomiting: No Temp > 96.8F: Yes Pain Manageable: Yes Adequeate Hydration: Yes Anesthesia Complications: No
[2017-07-21] MEDS: MORPHINE IV PRN ×2 (08:55→09:15)
[2017-07-21] MEDS ORDERED: PERCOCET 5/325 PO NR (09:31)
[2017-07-21 10:45] VITALS: BP 120/85
== END 2017-07-21 10:40 | disposition home or self-care (01) ==
LOC: OR 06:14
PROVIDERS: ATTEND Obstetrics & Gynecology
DX: O02.0 Blighted ovum and nonhydatidiform mole (principal); D25.9 Leiomyoma of uterus, unspecified; I10 Essential (primary) hypertension; E11.9 Type 2 diabetes mellitus without complications; E66.01 Morbid (severe) obesity due to excess calories; Z68.43 Body mass index [BMI] 50.0-59.9, adult; Z91.013 Allergy to seafood; Z91.048 Other nonmedicinal substance allergy status
CPT/HCPCS: 36415; 59812; 85027; 86850; 86900; 86901; 88305; J0330; J1885; J2250; J2270; J2405; J2704; J3010; J7030; J7050; J2210

== ENCOUNTER 2018-07-21 11:06 | Emergency (ER) | payer MEDICAID ==
--- NOTE | 2018-07-21 11:14 | Emergency Department Report ---
Chief Complaint: High BP Stated Complaint: HBP/12WKS PREG Time Seen by Provider: 07/21/18 11:11 - HPI History of Present Illness: pt is 12 weeks seen at OB and BP elevated advised to be seen in the ED LN April 28, 2018 OB: Dr. Glaser / P:1/ A:1 having a ACOSTA since 9AM hx of HTN, pt previously took hctz, now on labetalol MSE screening note: Focused history and physical exam performed. Due to findings the following was ordered:UA, CBC, CMP ED Disposition for MSE Condition: Stable
[2018-07-21 12:09] LABS: Bilirubin,Urine NEG (Negative); Blood,Urine NEG (Negative); Color,Urine Yellow (Yellow); Mucus,Urine FEW /HPF; Protein,Urine <15 mg/dL mg/dL (Negative); Urobilinogen,Urine < 2.0 mg/dL (<2.0)
[2018-07-21] MEDS ORDERED: NORMODYNE PO ONE (12:22)
--- NOTE | 2018-07-21 12:23 | Emergency Department Report ---
ED General Adult HPI - General Chief complaint: High BP Stated complaint: HBP/12WKS PREG Time Seen by Provider: 07/21/18 12:10 Source: patient Mode of arrival: Ambulatory Limitations: No Limitations - History of Present Illness Initial comments: Matthew is a 27-year-old female presents emergency department for management of her blood pressure. Patient was sent here by her primary [employer] office for high blood pressure. Patient states she was in the office morning her blood pressure was elevated. Patient is been having a headache that started this morning. Patient states the headache is a 2-3 out of 10. Patient. Patient denies confusion. Patient denies neck pain. Patient denies chest pain or shortness of breath. Patient states she normally takes labetalol 200 mg twice a day but she missed her medications today and last night. But today just prior to going to her [employer] PRO[employer]'s office this morning. -: Sudden Location: head Radiation: non-radiation Severity scale (0 -10): 2 Quality: aching Consistency: constant Improves with: rest Worsens with: movement Associated Symptoms: denies: confusion, chest pain, cough, diaphoresis, fever/chills, headaches, loss of appetite, malaise, nausea/vomiting, rash, seizure, shortness of breath, syncope, weakness Treatments Prior to Arrival: none - Related Data Previous Rx's Medication Instructions Recorded Last Taken Type Vit No.130/Iron/Folic 1 each PO QAM 30 Days #30 tablet 06/22/17 07/19/17 Rx [ Tablet] Fluconazole [Diflucan] 150 mg PO ONCE #1 tablet 07/21/17 Unknown Rx Ibuprofen [Motrin] 800 mg PO Q8HR PRN #30 tablet 07/21/17 Unknown Rx oxyCODONE /ACETAMINOPHEN [Percocet 1 tab PO Q6HR PRN #20 tablet 07/21/17 Unknown Rx 5/325] Allergies Allergy/AdvReac Type Severity Reaction Status Date / Time iodine Allergy Unknown Verified 07/21/18 11:07 shrimp Allergy Swelling Verified 07/21/18 11:07 ED Review of Systems ROS: Stated complaint: HBP/12WKS PREG Other details as noted in HPI Constitutional: denies: chills, fever Eyes: denies: eye pain, eye discharge, vision change ENT: denies: ear pain, throat pain Respiratory: denies: cough, shortness of breath, wheezing Cardiovascular: denies: chest pain, palpitations Endocrine: no symptoms reported Gastrointestinal: denies: abdominal pain, nausea, diarrhea Genitourinary: denies: urgency, dysuria, discharge Musculoskeletal: denies: back pain, joint swelling, arthralgia Skin: denies: rash, lesions Neurological: denies: headache, weakness, paresthesias Psychiatric: denies: anxiety, depression Hematological/Lymphatic: denies: easy bleeding, easy bruising ED Past Medical Hx - Past Medical History Previous Medical History?: Yes Hx Hypertension: Yes (Stopped taking meds after being seen in ED 06/2017) Hx Headaches / Migraines: Yes (migraines) Hx Psychiatric Treatment: Yes (ANXIETY) Additional medical history: Heart murmur, Morbid Obesity, vaginal delivery 02-01-2009 - Surgical History Past Surgical History?: Yes Additional Surgical History: Umbilical HERNIA REPAIR - Family History Family history: hypertension - Social History Smoking Status: Never Smoker Substance Use Type: None - Medications Home Medications: Home Medications Medication Instructions Recorded Confirmed Last Taken Type Vit No.130/Iron/Folic 1 each PO QAM 30 Days #30 tablet 06/22/17 07/21/17 07/19/17 Rx [ Tablet] Fluconazole [Diflucan] 150 mg PO ONCE #1 tablet 07/21/17 Unknown Rx Ibuprofen [Motrin] 800 mg PO Q8HR PRN #30 tablet 07/21/17 Unknown Rx oxyCODONE /ACETAMINOPHEN [Percocet 1 tab PO Q6HR PRN #20 tablet 07/21/17 Unknown Rx 5/325] ED Physical Exam - General Limitations: No Limitations General appearance: alert, in no apparent distress - Head Head exam: Present: atraumatic, normocephalic - Eye Eye exam: Present: normal appearance - ENT ENT exam: Present: mucous membranes moist - Neck Neck exam: Present: normal inspection - Respiratory Respiratory exam: Present: normal lung sounds bilaterally. Absent: respiratory distress - Cardiovascular Cardiovascular Exam: Present: regular rate, normal rhythm. Absent: systolic murmur, diastolic murmur, rubs, gallop - GI/Abdominal GI/Abdominal exam: Present: soft, normal bowel sounds - Extremities Exam Extremities exam: Present: normal inspection - Back Exam Back exam: Present: normal inspection - Neurological Exam Neurological exam: Present: alert, oriented X3 - Psychiatric Psychiatric exam: Present: normal affect, normal mood - Skin Skin exam: Present: warm, dry, intact, normal color. Absent: rash ED Course Vital Signs 07/21/18 07/21/18 07/21/18 11:15 12:26 12:30 Temperature 98.3 F Pulse Rate 98 H 88 87 Respiratory 18 9 L 22 Rate Blood Pressure 170/111 144/93 O2 Sat by Pulse 98 Oximetry - Reevaluation(s) Reevaluation #1: Chest/pending. Initial evaluation done. Patient's blood pressure elevated. Patient will be given labetalol 200 mg. 07/21/18 12:23 Repeat blood pressure 140/80. see vital signs documentation. We'll hold the labetalol and continue to monitor blood pressure. Headache has resolved 07/21/18 12:36 1 ED Medical Decision Making - Lab Data Result diagrams: 07/21/18 11:40 07/21/18 11:40 - Medical Decision Making Patient is a 27-year-old female presents to [facility] for management of her blood pressure. Patient blood pressure was elevated because she missed 2 doses of her labetalol. Patient's took labetalol prior to going to her [employer] and being sent to the ER. Patient's blood pressure improved on its own. No treatment was given in the ER. Patient's labs are unremarkable. Patient will be discharged to follow up with her [employer] for further management of her and high blood pressure. - Differential Diagnosis hbp. missed dose. peñaloza Critical care attestation.: If time is entered above; I have spent that time in minutes in the direct care of this critically ill patient, excluding procedure time. ED Disposition Clinical Impression: 12 weeks gestation of Hypertension Qualifiers: Hypertension type: essential hypertension Qualified Code(s): I10 - Essential (primary) hypertension Headache Qualifiers: Headache type: unspecified Headache chronicity pattern: acute headache Intractability: not intractable Qualified Code(s): R51 - Headache Disposition: DC-01 TO HOME OR SELFCARE Is pt being admited?: No Does the pt Need Aspirin: No Condition: Stable Instructions: Hypertension (ED) Additional Instructions: to follow up with primary care in 2-3 days. Patient to follow up with [employer]MER in 2-3 days. Patient to return to ER if condition worsens. Patient to take meds as directed. Patient to take Tylenol when necessary for pain. Patient to continue vitamin. Referrals: ELIE NICOLAS MD [Primary Care Provider] - 2-3 Days Time of Disposition: 14:08
[2018-07-21 12:34] VITALS: BP 144/93
[2018-07-21 12:37] LABS: Alanine Aminotransferase 7 units/L (7-56); Albumin 3.4 g/dL (3.9-5); BUN/Creatinine Ratio 12; Blood Urea Nitrogen 7 mg/dL (7-17); Calcium 9.1 mg/dL (8.4-10.2); Hemolysis Index 7
[2018-07-21 12:43] LABS: Basophils # (Auto) 0.1 K/mm3 (0.0-0.1); Basophils % (Auto) 0.4 % (0.0-1.8); Eosinophils # (Auto) 0.1 K/mm3 (0.0-0.4); Eosinophils % (Auto) 0.9 % (0.0-4.3); Hematocrit 36.1 % (30.3-42.9); Hemoglobin 11.9 gm/dl (10.1-14.3); Lymphocytes # (Auto) 2.7 K/mm3 (1.2-5.4); Lymphocytes % (Auto) 22.5 % (13.4-35.0); Mean Corpuscular HGB Conc 33 % (30-34); Mean Corpuscular Volume 80 fl (79-97); Monocytes # (Auto) 0.5 K/mm3 (0.0-0.8); Platelet Count 333 K/mm3 (140-440); Red Blood Count 4.52 M/mm3 (3.65-5.03); Red Cell Distribution Width 17.1 % (13.2-15.2)
== END 2018-07-21 14:30 | disposition home or self-care (01) ==
LOC: ED 11:06
DX: O16.1 Unspecified maternal hypertension, first trimester (principal); O26.891 Other specified pregnancy related conditions, first trimester; G43.909 Migraine, unspecified, not intractable, without status migrainosus; O99.341 Other mental disorders complicating pregnancy, first trimester; F41.9 Anxiety disorder, unspecified; O99.211 Obesity complicating pregnancy, first trimester; E66.01 Morbid (severe) obesity due to excess calories; Z91.041 Radiographic dye allergy status; Z91.013 Allergy to seafood; Z3A.12 12 weeks gestation of pregnancy
CPT/HCPCS: 36415; 80053; 81001; 85025